=== PATIENT | male | born 1995 | race Caucasian/White ===

== ENCOUNTER 2024-11-05 19:18 | Emergency (ER) | payer BC, SELFPAY ==
[2024-11-05 19:37] VITALS: BP 149/89; PULSE 74; RESP 18; TEMP 36.9; O2SAT 98; BMI 29.5
--- NOTE | 2024-11-05 20:02 | XRR_ITS ---
PROCEDURE INFORMATION: Exam: XR Right Tibia and Fibula Exam date and time: 11/05/2024 8:04 PM Age: 29 years old Clinical indication: Injury or trauma; Fall; Blunt trauma; Right; Patient fell approx. 8 foot from roof feet first onto deck. C/O RT knee and lower leg pain. TECHNIQUE: Imaging protocol: Radiologic exam of the right tibia and fibula. Views: 2 views. COMPARISON: CR (LOW EXM, ) 11/05/2024 8:04 PM FINDINGS: Bones/joints: Normal. Soft tissues: Normal. XR/XR tibia fibula RT 2V [id number] IMPRESSION: No acute findings.
--- NOTE | 2024-11-05 20:02 | XRR_ITS ---
PROCEDURE INFORMATION: Exam: XR Right Knee Exam date and time: 11/05/2024 8:04 PM Age: 29 years old Clinical indication: Injury or trauma; Fall; Blunt trauma; Right; Patient fell approx. 8 foot from roof feet first onto deck. C/O RT knee and lower leg pain. TECHNIQUE: Imaging protocol: Radiologic exam of the right knee. Views: 3 views. COMPARISON: CR XR tibia fibula RT 2V [id number] 11/05/2024 8:04 PM FINDINGS: Bones/joints: Normal. Soft tissues: Normal. XR/XR knee RT 3V* [id number] IMPRESSION: No acute findings.
--- NOTE | 2024-11-05 20:02 | W.ED.TRAUMA ---
HPI - Trauma General: Chief Complaint: Trauma Stated Complaint: Fell off a roof Time Seen by Provider: 11/05/24 19:44 Source: patient Mode of arrival: ambulatory Limitations: no limitations History of Present Illness: 29-year-old male states he fell off a roof onto his porch roughly 8 foot fall states that his right leg went through the porch has abrasion to his right knee pain to his right knee and tib-fib. He is been ambulatory without any difficulty he states pain is sharp rates it a 5 out of 10 is worse with walking denies any other injuries from the fall Associated symptoms: Denies abdominal pain, back pain, chest pain, chills, dental pain, fever(s), headache(s), nausea or vomiting Related Data Allergies Allergy/AdvReac Type Severity Reaction Status Date / Time No Known Allergies Allergy Verified 11/05/24 19:43 Review of Systems Const: Denies: fever(s), chills, body aches or change in appetite ENMT: Denies: throat pain or dental pain Card: Denies: chest pain Resp: Denies: dyspnea GI: Denies: abdominal pain, nausea, vomiting or diarrhea Musc: Reports: extremity pain; Denies: neck pain or back pain Skin/Breast: Denies: rash Neuro: Denies: headache(s) Physical Exam Const: COMMON NORMALS: no acute distress, patient oriented x3 and healthy appearing HENMT: COMMON NORMALS: normocephalic and atraumatic HEAD & SCALP: normocephalic and atraumatic Eye: COMMON NORMALS: conjunctivae normal CONJUNCTIVA: Yes conjunctivae normal Neck/C-Spine: COMMON NORMALS: full ROM and supple CERVICAL SPINE: Yes cervical ROM normal, No pain with cervical ROM and No Cervical spine tenderness Chest: COMMONS NORMALS: normal inspection of the chest and normal palpation of entire chest wall Resp: COMMON NORMALS: normal respiratory effort Cardio: COMMON NORMALS: regular rate RATE: regular rate GI: COMMON NORMALS: Normal to inspection, nondistended, normoactive bowel sounds present, Soft to palpation, non-tender and no masses PALPATION: Yes Soft to palpation Extremity: COMMON NORMALS: full ROM NARRATIVE EXTREMITY EXAM: Tenderness to right knee without abrasion no obvious deformity Neuro: COMMON NORMALS: patient oriented x3, moves all extremities and no focal motor deficits Psych: COMMON NORMALS: mental status grossly normal, Normal thought process present and cooperative THOUGHT PROCESS: Normal thought process present Skin: COMMON NORMALS: no rashes or lesions noted and no wounds GENERAL SKIN EXAM: no rashes or lesions noted Course Vital Signs: Vital signs: Vital Signs Temperature 98.4 F 11/05/24 19:37 Pulse Rate 80 11/05/24 20:17 Respiratory Rate 16 11/05/24 20:17 Blood Pressure 141/91 11/05/24 20:17 Pulse Oximetry 98 11/05/24 20:17 Oxygen Delivery Me thod Room Air 11/05/24 20:17 MDM - Trauma Medical Decision Making Patient presents here with right knee abrasion no fracture noted patient stable for discharge follow-up PCP return if worsening. Medical Records I reviewed the patient's medical records. XR interpretation done by ED provider, pending radiology final review ED provider radiology interpretation(s): xr r knee: no acute fx xr right tib/fib: no acute fx Discharge Plan Discharge Patient Disposition: Home Clinical Impression: Abrasion of knee, right Condition: Stable Discharge Orders: Discharge ED (Routine); Ordered 11/05/24 Ordered By: Mitchel Basurto Discharge Diet: Advance as tolerated Discharge Activity: Resume usual activity Patient Instructions: Abrasion (ED) Print Language: Nigerien Coding Level of Care Code ED Cushion Cover Inspector for Saskia Larson
[2024-11-05] MEDS: HYDROcodone-acetaminophen 5-325 mg Tablet 1 TAB PO (20:16)
[2024-11-05 20:17] VITALS: BP 141/91; PULSE 80; RESP 16; O2SAT 98
[2024-11-05 21:05] VITALS: BP 129/73; PULSE 62; RESP 16; O2SAT 98
== END 2024-11-05 21:07 | disposition home or self-care (01) ==
PROVIDERS: Emergency Provider Emergency Medicine
DX: S80.211A Abrasion, right knee, initial encounter (principal); W13.2XXA Fall from, out of or through roof, initial encounter
CPT/HCPCS: 73562; 73590; 99283; J9999